=== PATIENT | female | born 1955 | race Caucasian/White ===

== ENCOUNTER 2020-04-21 10:42 | Emergency (ER) | payer SELFPAY ==
[~2020-04-21] VITALS: Ht 154 cm; Wt 45.0 kg
[2020-04-21 10:55] VITALS: BP 133/64
[2020-04-21] MEDS ORDERED: RT-ALBUTEROL/IPRATROPIUM 3 ML (DUONEB) VIAL INH ONE (11:00)
[2020-04-21] MEDS ORDERED: predniSONE 20 MG TAB PO ONE (11:00)
--- NOTE | 2020-04-21 11:04 | ED Cough/URI ---
General Chief Complaint: Respiratory Problems Stated Complaint: SOA Source: patient Exam Limitations: no limitations History of Present Illness Date Seen by Provider: Apr 21, 2020 Time Seen by Provider: 10:50 Initial Comments 65-year-old female presents with complaint shortness of air for the past 2 months, getting worse last few days. Increase shortness of air with short walk. History of COPD and only using an albuterol inhaler as needed. Currently does not have a primary care physician and attempted to be seen yesterday at several urgent cares "in the city", but was refused care and told to go to the ER. Allergies and Home Medications Allergies Coded Allergies: azithromycin (Verified Allergy, Unknown, 04/21/20) Home Medications Albuterol/Ipratropium 4 Gm Aero, 2 PUFF IH QID Prescribed by: KAMILA VAZQUEZ on 04/21/20 1144 Prednisone 50 Mg Tab, 50 MG PO DAILY Prescribed by: KAMILA VAZQUEZ on 04/21/20 1144 Patient Home Medication List Home Medication List Reviewed: Yes Review of Systems Review of Systems Constitutional: see HPI; No chills, No diaphoresis, No fever; malaise EENTM: no symptoms reported Respiratory: cough; No hemoptysis, No orthopnea; phlegm, short of breath; No stridor; wheezing Cardiovascular: No chest pain, No edema, No palpitations, No syncope Gastrointestinal: No abdominal pain, No nausea, No vomiting Musculoskeletal: No back pain, No joint pain Skin: No change in color, No rash Past Oyifjma-Kilwyg-Jvestm Hx Past Med/Social Hx: Reviewed Nursing Past Med/Soc Hx Patient Social History Alcohol Use: Denies Use Recreational Drug Use: No Smoking Status: Current Everyday Smoker Type Used: Cigarettes 2nd Hand Smoke Exposure: No Recent Foreign Travel: No Contact w/Someone Who Travel: No Recent Hopitalizations: No Physical Abuse: No Sexual Abuse: No Mistreated: No Fear: No Seasonal Allergies Seasonal Allergies: No Past Medical History Surgeries: Yes Tubal Ligation Respiratory: Yes COPD Cardiac: No Neurological: No Genitourinary: No Gastrointestinal: No Musculoskeletal: No Endocrine: No HEENT: No Cancer: No Psychosocial: No Integumentary: No Blood Disorders: No Physical Exam Vital Signs - First Documented 04/21/20 10:55 Temp 36.4 Pulse 80 Resp 18 B/P (MAP) 133/64 (87) Pulse Ox 100 O2 Delivery Room Air Capillary Refill : Height: '" Weight: lbs. oz. kg; BMI Method: General Appearance: WD/WN, no apparent distress HEENT: PERRL/EOMI, normal ENT inspection Neck: non-tender, full range of motion, supple Respiratory: chest non-tender, lungs clear, no respiratory distress, no accessory muscle use, other (lung sounds clear, but diminished) Cardiovascular: regular rate, rhythm, no edema, no gallop, no JVD Gastrointestinal: non tender, soft Extremities: normal range of motion, non-tender, normal inspection Progress/Results/Core Measures Suspected Sepsis SIRS Temperature: Pulse: Respiratory Rate: Blood Pressure / Mean: Results/Orders My Orders Orders - ROVENSTINEARIELKAMILA L DO Prednisone Tablet (Deltasone Tablet) (04/21/20 11:00) Albuterol/Ipra Inhalation Soln (Duoneb I (04/21/20 11:00) Svn Small Volume Nebulizer (04/21/20 10:59) Chest 1 View Ap/Pa Only (04/21/20 10:59) Medications Given in ED Current Medications Medications Dose Ordered Sig/Ruddy Route Start Time Stop Time Status Last Admin Dose Admin Albuterol/ Ipratropium 3 ml ONCE ONCE INH 04/21/20 11:00 04/21/20 11:01 DC 04/21/20 11:07 3 ML Prednisone 60 mg ONCE ONCE PO 04/21/20 11:00 04/21/20 11:01 DC 04/21/20 11:07 60 MG Vital Signs/I&O 04/21/20 10:55 Temp 36.4 Pulse 80 Resp 18 B/P (MAP) 133/64 (87) Pulse Ox 100 O2 Delivery Room Air Capillary Refill : Progress Note : Progress Note moderate improvement p steroid and duoneb. CXR clear. Discussed Rx's and need to estab a PCP for f/u care. Departure Impression Primary Impression: COPD exacerbation Disposition: HOME, SELF-CARE Condition: Improved Departure-Patient Inst. Decision time for Depature: 11:44 Referrals: [facility] [place] NO,LOCAL PHYSICIAN (PCP) Primary Care Physician Patient Instructions: Exacerbation of COPD (DC) Add. Discharge Instructions: Call the [facility] to establish a Primary Care Provider. You are advised to be seen in 1 week. Return to the ER if you are getting worse and unable to see a doctor in the clinic All discharge instructions reviewed with patient and/or family. Voiced understanding. Scripts Albuterol/Ipratropium (Combivent Respimat Inhal [place]) 4 Gm Aero 2 PUFF IH QID, #1 INH Prov: KAMILA VAZQUEZ DO 04/21/20 Prednisone (Prednisone) 50 Mg Tab 50 MG PO DAILY, #7 TAB Prov: KAMILA VAZQUEZ DO 04/21/20 KAMILA VAZQUEZ DO Apr 21, 2020 11:04
--- NOTE | 2020-04-21 11:42 | Diagnostic Imaging Report ---
EXAMINATION: CHEST 1 VIEW AP/PA ONLY. INDICATION: Shortness of air and hypoxia. COMPARISON: None available. FINDINGS: Hyperaerated lung volume is present and could relate to patient's reported COPD. No consolidation. No pleural effusion or pneumothorax. Normal cardiomediastinal silhouette. IMPRESSION: 1. No consolidation to indicate pneumonia. 2. Hyperaerated lung volume may represent air-trapping associated with patient's reported COPD. Dictated by: Dictated on workstation # [id number]
[2020-04-21] MEDS ORDERED: PRD50T PO (11:44)
[2020-04-21] MEDS ORDERED: IPRA4AER IH (11:44)
== END 2020-04-21 11:46 | disposition home or self-care (01) ==
LOC: ER FS 10:46
DX: J44.1 Chronic obstructive pulmonary disease with (acute) exacerbation (principal); F17.210 Nicotine dependence, cigarettes, uncomplicated; Z88.1 Allergy status to other antibiotic agents
CPT/HCPCS: 71045

== ENCOUNTER → 2021-04-26 | Outpatient (CLI) | payer MEDICARE ==
[~2021-04-26] MED LIST: IPRA4AER IH; PRD50T PO
--- NOTE | 2021-04-26 12:00 | Diagnostic Imaging Report ---
CT Lung Screening INDICATION: Screening for lung cancer, [id number]-agph history of smoking, current smoker. TECHNIQUE: Noncontrast, low-dose CT imaging performed according to the lung cancer screening protocol. Auto Exposure Controls were utilize during the CT exam to meet ALARA standards for radiation dose reduction. COMPARISON: None available. FINDINGS: No significant adenopathy within the chest. No aneurysmal dilatation of the thoracic aorta. Minimal scattered vascular calcifications. The heart is within normal limits in size. No pericardial effusion. No pleural effusion. Layering secretions noted within the trachea. Otherwise, the trachea is clear. No pneumothorax. Severe background centrilobular emphysematous changes are present. Mild right basilar scarring and/or atelectasis. No suspicious pulmonary nodule or opacity. The minimally visualized upper abdomen is unremarkable. Mild scattered osseous degenerative changes without acute osseous abnormality. IMPRESSION: Advanced background emphysematous changes without suspicious pulmonary nodule or opacity. LUNG-RADS CATEGORY: 1S: Negative. MODIFIER: S: Advanced background emphysematous changes. FOLLOW-UP: Continued annual low-dose CT of the chest in 12 months. Dictated by: Dictated on workstation # [id number]
== END ==
LOC: RAD 11:15
PROVIDERS: ATTEND Nurse Practitioner
DX: Z12.2 Encounter for screening for malignant neoplasm of respiratory organs (principal); J43.9 Emphysema, unspecified; F17.210 Nicotine dependence, cigarettes, uncomplicated
CPT/HCPCS: 71271

== ENCOUNTER → 2021-06-14 | Outpatient (CLI) | payer MEDICARE ==
[~2021-06-14] MED LIST changes: +RT-ALBUTEROL SULF 2.5 MG/3 ML PRE-MIX VIAL INH ONE
== END ==
LOC: RT 13:00
PROVIDERS: ATTEND Nurse Practitioner Family
DX: J44.9 Chronic obstructive pulmonary disease, unspecified (principal)
CPT/HCPCS: 94060; 94726; 94729